=== PATIENT | male | born 1975 | race Caucasian/White ===

== ENCOUNTER 2016-04-02 16:33 | Inpatient (IN) | payer OTHER ==
[2016-04-02] MEDS ORDERED: Aspirin 81mg Chewable Tab PO STA (16:45)
[2016-04-02] MEDS ORDERED: Aspirin 81mg Chewable Tab ONE (16:49)
[2016-04-02 17:18] LABS: % BASOPHILS 0.4 % (0.0-2.0); % EOSINOPHILS 2.5 % (0.0-5.0); % LYMPHOCYTES 31.2 % (20.0-50.0); % MONOCYTES 7.4 % (2.0-10.0); % NEUTROPHILS 58.5 % (40.0-80.0); HEMATOCRIT 46.3 % (39.0-49.0); HEMOGLOBIN 15.4 gm/dL (13.2-17.3); MEAN CELL VOLUME 90.7 fl (80-99); MEAN CORPUSCULAR HEMOGLOBIN 30.2 pg (26.0-30.0); MEAN CORPUSCULAR HGB CONC 33.3 pg (28.0-36.0); MEAN PLATELET VOLUME 9.7 fl; NEUTROPHILE ABSOLUTE 4.7 Th/cmm (1.8-8.0); PLATELET COUNT 189 Th/cmm (150-400); RED CELL DISTRIBUTION WIDTH 12.6 % (11.5-20.0)
[2016-04-02 17:25] LABS: ANION GAP 10.4 (7.0-16.0); BUN - UREA NITROGEN 13 mg/dL (7-25); CALCIUM SERUM 9.3 mg/dL (8.6-10.3); CARBON DIOXIDE 25.3 mEq/L (21.0-31.0); CHLORIDE 103 mEq/L (98-107); CHOLESTEROL 246 mg/dL (<200); GLUCOSE 116 mg/dL (70-105); POTASSIUM SERUM 3.7 mEq/L (3.5-5.1); SODIUM SERUM 135 mEq/L (136-145); TRIGLYCERIDES 427 mg/dL (<150)
--- NOTE | 2016-04-02 17:26 | ED Physician Chart ---
Chief Complaint/HPI - Patient Information Date Seen:: 04/02/16 Time Seen:: 16:45 Chief Complaint:: chest pain History of Present Illness:: onset today of intermittent left sided anterior pressure type exertional chest pain with radiation to left shoulder associated with dyspnea; no diaphoresis, cough, hemoptysis, A/N/V/D/C, fever, or chills; no abdominal pain Allergies:: Allergies Allergy/AdvReac Type Severity Reaction Status Date / Time No Known Allergies Allergy Verified 04/02/16 16:53 Vitals:: Vital Signs - 8 hr 04/02/16 04/02/16 16:55 17:17 Temp 99.4 F 99.4 F HR 83 83 RR 17 17 BP 125/85 125/85 O2 Sat % 97 97 Historian:: Patient Review:: Nurse's Note Reviewed Review of Systems - Review of Systems General/Constitutional: No fever, No chills, No weight loss, No weakness, No diaphoresis, No edema, No loss of appetite Skin: No skin lesions, No rash, No bruising Head: No headache, No light-headedness Eyes: No loss of vision, No pain, No diplopia ENT: No earache, No nasal drainage, No sore throat, No tinnitus Neck: No neck pain, No swelling, No thyromegaly, No stiffness, No mass noted Cardio Vascular: Chest pain, No chest pain, No palpitations, No PND, No orthopnea, No edema Pulmonary: SOB, No SOB, No cough, No sputum, No wheezing GI: No nausea, No vomiting, No diarrhea, No pain, No melena, No hematochezia, No constipation, No hematemesis G/U: No dysuria, No frequency, No hematuria Musculoskeletal: No bone or joint pain, No back pain, No muscle pain Endocrine: No polyuria, No polydipsia Psychiatric: No prior psych history, No depression, No anxiety, No suicidal ideation Hematopoietic: No bruising, No lymphadenopathy Allergic/Immuno: No urticaria, No angioedema Neurological: No syncope, No focal symptoms, No weakness, No paresthesia, No headache, No seizure, No dizziness, No confusion, No vertigo Past Medical History - Past Medical History Past Medical History: Dyslipidemia Family Medical History - Family Member Mother History Unknown: Yes Physical Exam - Physical Examination General/Constitutional: Awake, Well-developed, well-nourished, Alert, No distress, GCS 15, Non-toxic appearing, Ambulatory Head: Atraumatic Eyes: Lids, conjuctiva normal, PERRL, EOMI Skin: Nl inspection, No rash, No skin lesions, No ecchymosis, Well hydrated, No lymphadenopathy ENMT: External ears, nose nl, Nasal exam nl, Lips, teeth, gums nl Neck: Nontender, Full ROM w/o pain, No JVD, No nuchal rigidity, No bruit, No mass, No stridor Respiratory: Nl effort/Exclusion, Clear to Auscultation, No Wheeze/Rhonchi/Rales Cardio Vascular: RRR, No murmur, gallop, rubs, NL S1 S2 GI: No tenderness/rebounding/guarding, No organomegaly, No hernia, Normal BS's, Nondistended, No mass/bruits, No McBurney tenderness : No CVA tenderness Extremities: No tenderness or effusion, Full ROM, normal strength in all extremities, No edema, Normal digits & nails Neuro/Psych: Alert/oriented, DTR's symmetric, Normal sensory exam, Normal motor strength, Judgement/insight normal, Mood normal, Normal gait, No focal deficits Misc: normal gait, Normal back, No paraspinal tenderness Labs/Radiology/EKG Results - Lab Results Results: Laboratory Tests 04/02/16 17:03 WBC 8.0 RBC 5.10 Hgb 15.4 Hct 46.3 MCV 90.7 MCH 30.2 H MCHC Differential 33.3 RDW 12.6 Plt Count 189 MPV 9.7 Neutrophils % 58.5 Lymphocytes % 31.2 Monocytes % 7.4 Eosinophils % 2.5 Basophils % 0.4 Comments:: unremarkable except for elevated cholesterol and triglyceride levels ED Septic Shock - . Is Septic Shock (SBP<90, OR Lactate>4 mmol\L) present?: No - <6hrs of presentation: Vital Signs: Vital Signs - 8 hr 04/02/16 04/02/16 16:55 17:17 Temp 99.4 F 99.4 F HR 83 83 RR 17 17 BP 125/85 125/85 O2 Sat % 97 97 Assessment of Lungs: Lung CTA bilateral, Ventilator, Decreased BS, Rhonchi, No Rhonchi, Rales, No Rales, Wheezing, No Wheezing, Stridor, No Stridor, Other, Documented in PE Assessment of Heart: RRR, Thrill, No thrill, Gallops, No Gallops, S3, S4, Rub, No Rub, Murmur, No Murmur, Other, Documented in PE EKG Interpretation: Documented in Result Capillary refill evaluation: Capillary refill < 2 secs, Capillary refill > 2 secs, Other, Documented in PE Skin Exam: Warm, Dry, Good Turgur, Poor Turgor, Pallor, No Pallor, Diaphoretic, No Diaphoresis, Mottled, No Mottling, Cyanotic, Edema, No Edema, Erythema, No Erythema, Other, Documented in PE Reassessment (Disposition) - Reassessment Reassessment Condition:: Improved - Diagnosis Diagnosis:: Chest Pain; Unstable Angina; Hyperlipidemia - Aftercare/Follow up Instructions Aftercare/Follow-Up Instructions:: Counseled pt regarding lab results/diagnosis & need follow up, Counseled pt & family regarding lab results/diagnosis & need follow up - Patient Disposition Discharge/Transfer:: Acute Care w/in this hosp Accepting Physician:: Dr. Wilson Time Called:: 1819 Time Responded:: 18:20 Admitted to:: Telemetry Condition at Disposition:: Stable, Improved
[2016-04-02 17:45] LABS: BNP < 5.0 pg/mL (5.0-100.0)
[2016-04-02 18:15] LABS: INR 0.94 (0.5-1.4); PROTHROMBIN TIME (TEST) 9.3 SECONDS (9.5-11.5)
[2016-04-02] MEDS ORDERED: guaiFENesin 200 MG/10 ML UDC PO PRN (19:50)
[2016-04-02] MEDS ORDERED: Albuterol Nebulizer 2.5mg/3mL HHN PRN (19:50)
[2016-04-02] MEDS ORDERED: Morphine Sulfate 2 mg/mL 1mL Syr IVP PRN (19:50)
[2016-04-02] MEDS ORDERED: Maalox 30 mL Cup PO PRN (19:50)
[2016-04-02] MEDS ORDERED: Ipratropium Neb 0.5 mg/2.5 mL UD HHN PRN (19:50)
[2016-04-02] MEDS ORDERED: D5-0.45NS 1,000 ML IV SCH (20:00)
[2016-04-02] MEDS ORDERED: LOVASTATIN 40 MG PO SCH (21:00)
[2016-04-03 05:14] LABS: HEMOGLOBIN 15.2 gm/dL (13.2-17.3); MEAN CELL VOLUME 89.3 fl (80-99); MEAN CORPUSCULAR HEMOGLOBIN 30.2 pg (26.0-30.0); MEAN CORPUSCULAR HGB CONC 33.9 pg (28.0-36.0); PLATELET COUNT 200 Th/cmm (150-400); RED BLOOD COUNT 5.04 Mil/cmm (4.30-5.70); RED CELL DISTRIBUTION WIDTH 12.9 % (11.5-20.0); WHITE BLOOD COUNT 7.8 Th/cmm (4.8-10.8)
[2016-04-03 05:15] LABS: % BASOPHILS 0.4 % (0.0-2.0); % EOSINOPHILS 2.9 % (0.0-5.0); % LYMPHOCYTES 31.7 % (20.0-50.0); % MONOCYTES 6.3 % (2.0-10.0); % NEUTROPHILS 58.7 % (40.0-80.0); MEAN PLATELET VOLUME 9.6 fl; NEUTROPHILE ABSOLUTE 4.6 Th/cmm (1.8-8.0)
[2016-04-03 05:52] LABS: CHLORIDE 105 mEq/L (98-107); POTASSIUM SERUM 4.1 mEq/L (3.5-5.1); SODIUM SERUM 133 mEq/L (136-145)
[2016-04-03 05:53] LABS: ANION GAP 7.8 (7.0-16.0); BUN - UREA NITROGEN 12 mg/dL (7-25); CALCIUM SERUM 9.3 mg/dL (8.6-10.3); CARBON DIOXIDE 24.3 mEq/L (21.0-31.0); GLUCOSE 104 mg/dL (70-105); MAGNESIUM 2.3 mg/dL (1.9-2.7)
[2016-04-03] MEDS ORDERED: Aspirin 325 mg EC PO SCH (09:00)
--- NOTE | 2016-04-03 11:19 | Diagnostic Imaging Report ---
Portable chest x-ray HISTORY: Chest pain The heart size is difficult to assess with portable technique and a poor inspiration. No acute focal pulmonary processes. No hilar or mediastinal abnormalities. IMPRESSION: No acute pulmonary processes
--- NOTE | 2016-04-03 12:47 | Internal Medicine Prog Note ---
Internal Medicine Subjective - Subjective Service Date: 04/03/16 ([facility] dictated [id number]) Internal Medicine Objective - Results Result Diagrams: 04/03/16 04:15 04/03/16 04:15 Recent Labs: Laboratory Last Values WBC 7.8 Th/cmm (4.8-10.8) 04/03/16 04:15 RBC 5.04 Mil/cmm (4.30-5.70) 04/03/16 04:15 Hgb 15.2 gm/dL (13.2-17.3) 04/03/16 04:15 Hct 45.0 % (39.0-49.0) 04/03/16 04:15 MCV 89.3 fl (80-99) 04/03/16 04:15 MCH 30.2 pg (26.0-30.0) H 04/03/16 04:15 MCHC Differential 33.9 pg (28.0-36.0) 04/03/16 04:15 RDW 12.9 % (11.5-20.0) 04/03/16 04:15 Plt Count 200 Th/cmm (150-400) 04/03/16 04:15 MPV 9.6 fl 04/03/16 04:15 Neutrophils % 58.7 % (40.0-80.0) 04/03/16 04:15 Lymphocytes % 31.7 % (20.0-50.0) 04/03/16 04:15 Monocytes % 6.3 % (2.0-10.0) 04/03/16 04:15 Eosinophils % 2.9 % (0.0-5.0) 04/03/16 04:15 Basophils % 0.4 % (0.0-2.0) 04/03/16 04:15 PT 9.3 SECONDS (9.5-11.5) L 04/02/16 17:03 INR 0.94 (0.5-1.4) 04/02/16 17:03 Sodium 133 mEq/L (136-145) L 04/03/16 04:15 Potassium 4.1 mEq/L (3.5-5.1) 04/03/16 04:15 Chloride 105 mEq/L (98-107) 04/03/16 04:15 Carbon Dioxide 24.3 mEq/L (21.0-31.0) 04/03/16 04:15 Anion Gap 7.8 (7.0-16.0) 04/03/16 04:15 BUN 12 mg/dL (7-25) 04/03/16 04:15 Creatinine 1.0 mg/dL (0.7-1.3) 04/03/16 04:15 Est GFR ( Amer) > 60.0 ml/min 04/03/16 04:15 Est GFR (Non-Af Amer) > 60.0 ml/min 04/03/16 04:15 BUN/Creatinine Ratio 12.0 04/03/16 04:15 Glucose 104 mg/dL (70-105) 04/03/16 04:15 Calcium 9.3 mg/dL (8.6-10.3) 04/03/16 04:15 Magnesium 2.3 mg/dL (1.9-2.7) 04/03/16 04:15 Creatine Kinase 78 U/L (30-223) 04/02/16 17:03 Troponin I 0.01 ng/mL (0.01-0.05) 04/02/16 17:03 B-Natriuretic Peptide < 5.0 pg/mL (5.0-100.0) L 04/02/16 17:03 Triglycerides 427 mg/dL (<150) H 04/02/16 17:03 Cholesterol 246 mg/dL (<200) H 04/02/16 17:03 LDL Cholesterol Direct 114 mg/dL (75-193) 04/02/16 17:03 HDL Cholesterol 43 mg/dL (23-92) 04/02/16 17:03 TSH 3.62 uIU/ml (0.34-5.60) 04/03/16 04:15 - Physical Exam Vitals and I&O: Vital Signs Temp 97.6 F 04/03/16 04:00 Pulse 75 04/03/16 09:18 Resp 17 04/03/16 11:18 BP 124/80 04/03/16 09:18 Pulse Ox 96 04/03/16 08:33 Intake & Output 04/02/16 04/03/16 04/03/16 18:59 06:59 18:59 Intake Total 1000 Output Total 800 Balance 200 Intake: Oral 1000 Output: Urine 800 Other: # Voids 0 Active Medications: Current Medications Acetaminophen (Tylenol) 650 mg PO Q4HR PRN PRN Reason: Pain or Fever >101 Stop: 06/01/16 19:49 Al Hydrox/Mg Hydrox/Simethicone (Maalox) 30 ml PO Q6HR PRN PRN Reason: Constipation Stop: 06/01/16 19:49 Albuterol Sulfate (Albuterol 2.5mg/3ml Neb Ud) 2.5 mg HHN Q2HR PRN PRN Reason: Shortness of Breath or Wheeze Stop: 06/01/16 19:49 Aspirin (Ecotrin) 325 mg PO DAILY [facility] Stop: 06/02/16 08:59 Last Admin: 04/03/16 09:18 Dose: 325 mg Clonidine HCl (Catapres) 0.1 mg PO Q6HR PRN PRN Reason: SBP GREATER THAN 160 Stop: 06/01/16 19:49 Guaifenesin (Robitussin) 200 mg PO Q4HR PRN PRN Reason: Cough or Congestion Stop: 06/01/16 19:49 Heparin Sodium (Porcine) (Heparin) 5,000 units SUBQ Q12HR [facility] Stop: 06/01/16 20:59 Last Admin: 04/03/16 10:32 Dose: 5,000 units Dextrose/Sodium Chloride (D5-0.45ns) 1,000 mls @ 100 mls/hr IV .Q10H [facility] Stop: 06/01/16 19:59 Last Admin: 04/02/16 20:25 Dose: 100 mls/hr Ipratropium [place] (Atrovent Neb 0.5mg/2.5ml) 0.5 mg HHN Q2HR PRN PRN Reason: Shortness of Breath or Wheeze Stop: 06/01/16 19:49 Meclizine HCl (Antivert) 25 mg PO DAILY PRN PRN Reason: Nausea / Vomiting Stop: 06/01/16 19:49 Metoprolol Succinate (Toprol Xl) 25 mg PO DAILY [facility] Stop: 06/02/16 08:59 Last Admin: 04/03/16 09:18 Dose: 25 mg Morphine Sulfate (Morphine) 2 mg IVP Q4HR PRN PRN Reason: Pain (Severe) Stop: 06/01/16 19:49 Last Admin: 04/02/16 20:26 Dose: 2 mg Nitroglycerin (Nitrostat) 0.4 mg SL Q5MIN PRN PRN Reason: Chest Pain Stop: 06/01/16 19:51 Ondansetron HCl (Zofran) 4 mg IV Q8H PRN PRN Reason: Nausea / Vomiting Stop: 06/01/16 19:49 Simvastatin (Zocor) 40 mg PO HS [facility] Stop: 06/01/16 20:59 Last Admin: 04/02/16 21:04 Dose: 40 mg Zolpidem Tartrate (Ambien) 10 mg PO HS PRN PRN Reason: Insomnia Stop: 06/01/16 19:49 Internal Medicine Assmt/Plan - Assessment Assessment: chest pain, possible ACS abdominal pain
--- NOTE | 2016-04-03 14:49 | History & Physical ---
CHIEF COMPLAINT: Chest pain. HISTORY OF PRESENT ILLNESS: This is a 41-year-old male who has been having left-sided abdominal pain associated with chest pain. The patient denied any nausea, vomiting or any diarrhea. The patient denied any shortness of breath, but he does state when he lies down and upon inspiration, the patient states that he starts getting sharp stabbing pain on his left side of the abdomen. For this reason, the patient is now admitted to the telemetry unit. PAST MEDICAL HISTORY: Dyslipidemia. SOCIAL HISTORY: The patient is a former smoker. Drinks occasionally. Denies any street drugs. FAMILY HISTORY: Noncontributory. ALLERGIES: No known allergies. REVIEW OF SYSTEMS: GENERAL: Denies any fever, any chills. SKIN: Denies any skin lesions. HEAD: Denies any headache. EYES: Denies any loss of vision. CARDIOVASCULAR: Denies any chest pain. PULMONARY: Denies any shortness of breath. GASTROINTESTINAL: Denies any nausea, vomiting. GENITOURINARY: Denies any dysuria. All other systems are reviewed by me and are negative. PHYSICAL EXAMINATION: GENERAL: The patient is well developed, well nourished, no acute distress. VITAL SIGNS: Temperature 97.6, heart rate of 68, blood pressure ____/79, respirations 20, O2 sat 96%. HEENT: Head; normocephalic, atraumatic. NECK: Supple. No mass. LUNGS: Clear bilaterally upon auscultation. HEART: Regular rate and rhythm. No murmurs or gallops. SKIN: Intact, warm and dry to touch. ABDOMEN: Soft, nontender, and nondistended. Positive bowel sounds in all 4 quadrants. ASSESSMENT: 1. Chest pain, possible acute coronary syndrome. 2. Abdominal pain. 3. Morbid obesity. PLAN: The patient will be admitted to the telemetry unit. The patient to have a consultation with Dr. Alexis Lambert. We will get abdominal ultrasound. The patient will be kept on IV fluids for hydration. We will continue to monitor the patient. JOB# [id number]
--- NOTE | 2016-04-03 15:24 | Diagnostic Imaging Report ---
Abdominal side HISTORY: Pain The liver exhibits a homogeneous parenchyma. No focal lesions. The gallbladder appears normal. No calculi are seen. Common bile duct is not clearly visualized. No intrahepatic biliary dilatation. The pancreas is not well seen due to bowel gas. The kidneys appear normal bilaterally. The spleen is normal in size. No other retroperitoneal or intra-abdominal abnormalities. IMPRESSION: 1. Limited exam due to bowel gas 2. No definite abnormalities
--- NOTE | 2016-04-03 22:56 | Admit Criteria Form ---
Admit Criteria Forms - Admit Criteria Diagnosis: CHEST PAIN Clinical Indications for Admission to Inpatient Care (Place 'X' for any and all applicable criteria): Admission is indicated for chest pain and ANY ONE of the following(1)(2)(3)(4)(5 ): [X ]I. Angina with acute coronary syndrome (Also use Myocardial Infarction or Angina guideline) [ ]II. Hemodynamic instability [ ]III. Angina needing acute intervention as indicated by ALL of the following( 11)(12): [ ]a) Unstable angina is present as indicated by angina that is ANY ONE of the following: [ ]i) New onset [ ]ii) Nocturnal [ ]iii) Prolonged at rest [ ]iv) Progressive [ ]b) Angina warrants acute intervention as indicated by ANY ONE of the following: [ ]i) Recurrent angina (e.g, not responding as previously to treatment) [ ]ii) Angina at rest or with low-level activities despite initial medical therapy [ ]iii) New or presumably new ST-segment depression on ECG [ ]iv) Signs or symptoms of heart failure (eg, dyspnea, pulmonary edema) [ ]v) New or worsening mitral regurgitation [ ]vi) Hemodynamic instability [ ]vii) Dangerous arrhythmia (eg, sustained ventricular tachycardia) [ ]viii) History of percutaneous coronary intervention within 6 months [ ]ix) History of coronary artery bypass graft surgery [ ]x) SUKHWINDER risk score of 2 or greater[A] [ ]xi) History of Diabetes(14) [ ]xii) High-risk cardiac ischemia findings on noninvasive testing (e.g, echocardiogram, treadmill testing, nuclear scan) [ ]xiii) Chronic renal insufficiency (ie, estimated GFR less than 60 mL/min/1.732m) [ ]xiv) Left ventricular ejection fraction less than 40% [ ]IV. Evidence of IA (eg, cardiac biomarkers positive, ST-segment elevation on ECG) also use Myocardial Infarction Criteria Form. [ ]V. Pulmonary edema [ ]. Respiratory distress [ ]VII. Chest pain indicative of serious diagnosis other than coronary artery disease (eg, aortic dissection) [ ]VIII. Contraindications and/or Inappropriate clinical situations for Observational Care in patients with Chest Pain, when ANY ONE of the following is required: [ ]a) Patient with risk factor for pulmonary embolism, acute coronary syndrome and myocardial infarction (18) [ ]b) Patient with Pulmonary embolism require an average LOS of 4.3 days, therefore emergency department observation management is inappropriate 18,23 [ ]c) Painful condition/s in the elderly, have the highest rate of recidivism after emergency department observation management (10.8%) 20,21,22 [ ]d) Elevated cardiac biomarker requires intensive and exhaustive care (19) [ ]IX. General contraindications and/or Inappropriate clinical situations for Observational Care in patients with Chest Pain, when ANY ONE of the following is required: [ ]a) Prediction of prolongation of LOS based on ANY ONE of the following may be considered as a contraindication for observational care 2, 3, 4, 5, 6, 7, 8, 9, 10, 11 [ ]i) Age > 65 yrs. [ ]ii) Patient arriving by ambulance [ ]iii) Patient with high acuity [ ]iv) Patient requiring vital sign monitoring [ ]v) Patient on IV medication [ ]b) Systolic blood pressures 180mmHg 3,12 [ ]c) Patient with altered mental status including delirium and other alteration of consciousness, (3) [ ]d) Patient whose discharge disposition will be to a senior care home or rehabilitation home should not be managed in Emergency Department Observation Unit. CMS rule requires 3 days hospital stay before such placement. 3,13 [ ]e) Patient with failure to thrive due to broad array of etiologies 3,16,17 [ ]f) Inability to ambulate 3,14 Extended stay beyond goal length of stay may be needed for (1)(28): [ ]a) Specific condition diagnosed after evaluation (eg, pulmonary embolism, aortic dissection) [ ]b) Unstable angina [ ]c) Continued suspicion of acute coronary syndrome with inability to complete needed cardiac evaluation (eg, patient clinically unable to undergo stress testing) [ ]d) Myocardial infarction (Contents from ANGINA and CHEST PAIN clinical indications for admission to inpatient care have been integrated in this form) The original [employer] content created by [employer] has been revised. The portions of the content which have been revised are identified through the use of italic text or in bold, and [facility] has neither reviewed nor approved the modified material. All other unmodified content is copyright [employer]. Please see references footnoted in the original [facility] edition 2016 Admit Criteria Met?: Yes
--- NOTE | 2016-04-04 04:45 | Consultation ---
Patient of Dr. Wilson HISTORY AND PHYSICAL: This 41-year-old male patient who had upper respiratory infection about a week ago. Following this, patient has been coughing and now patient complaining of pain in the left lower chest pain increases with deep breathing and movement. PAST MEDICAL HISTORY: Hyperlipidemia. FAMILY HISTORY: Unremarkable. SOCIAL HISTORY: No history of smoking, alcohol abuse. ALLERGIES: None. PHYSICAL EXAMINATION: VITAL SIGNS: Blood pressure 130/80, pulse 70, respirations 20. HEAD: Normocephalic. No lumps or bumps. EYES: Pupils equal, reactive to light. Fundi show AV nicking, sclerae white, conjunctivae pink. NECK: Carotid 2+. Normal upstroke. JVD flat. Thyroid not palpable. Lymph nodes not palpable. CHEST: Shows increased AP diameter. No kyphosis, scoliosis. LUNGS: Bilateral ____ breath sounds. HEART: PMI fifth intercostal space with lateral to midclavicular line. S1, S2. No S3, S4. Systolic murmur, grade 2/6, lower left sternal border without radiation. ABDOMEN: Soft. Liver, spleen not palpable. No organomegaly. Bowel sounds active. NEUROLOGIC: Unremarkable. EXTREMITIES: Peripheral pulses 2+. No pedal edema. The patient has tenderness in the left lower rib cage. CLINICAL IMPRESSION: 1.Acute costochondritis. 2.Hyperlipidemia. PLAN: The patient's EKG normal. The patient's clinical is stable for discharge. [facility]# [id number]
== END 2016-04-03 18:00 | disposition home or self-care (01) | DRG 311 ==
LOC: ER 16:33 → TELE 18:30
PROVIDERS: ADMIT Internal Medicine; ATTEND Internal Medicine
DX: I24.9 Acute ischemic heart disease, unspecified (principal); E66.01 Morbid (severe) obesity due to excess calories; E78.5 Hyperlipidemia, unspecified; R10.9 Unspecified abdominal pain; M94.0 Chondrocostal junction syndrome [Tietze]; Z68.31 Body mass index [BMI] 31.0-31.9, adult; Z87.891 Personal history of nicotine dependence
CPT/HCPCS: 36415-UA; 71010-TC; 76700-TC; 80048-TC; 80061-TC; 82550-TC; 83735-TC; 83880-TC; 84443-TC; 84484-TC; 85025-TC; 85610-TC; 93005; 94760; J1644; J2270; Z7610